=== PATIENT | male | born 1995 ===

== ENCOUNTER 2020-07-30 16:18 | Outpatient (CLI) | payer OTHER ==
--- NOTE | 2020-07-30 17:15 | SLEEP CARE CONSULTATION ---
Information from patient questionnaire entered by David Pérez. I have reviewed and concur with the information entered by David Pérez. This document represents the service I personally performed and the decisions made by me, Patricia Martinez ARNP. History of Present Illness Service Date and Time: 07/30/2020 1618 Reason for Visit: New patient Chief Complaint: reports: Unrefreshed sleep, Snoring, Excessive daytime sleepiness, Observed pauses in breathing, Fatigue, Frequent awakenings at night, Other (Sore throat when I wake up, major headaches) Date of Onset: 3-4 years Usual bedtime: 10 PM Time it takes to fall asleep: 30 min - 1 hr Snores at night: Yes Observed to quit breathing while asleep: Yes Sleeps alone due to snoring: Yes Number of times waking at night: 3-4 Reasons for waking at night: reports: Snoring, Other (Unknown reason). denies: Choking, Gasping for air Toss, Turn, or Twitch while sleeping: Yes Recalls having dreams: No Usually gets out of bed at: 0530 Feels refreshed in the morning: No Morning headache: Yes (Couple of hours after I wake up; pretty much every morning) Sleepy or fatigued during the day: Yes Ever fallen asleep while driving: No Takes day naps: Yes (daily for about 2 hours) Dreams during day naps: Yes Prior sleep studies: No Additional HPI information: I had the pleasure of seeing GAYATRI PARRISH today regarding the possibility of him having a sleep disorder. His current complaints are excessive daytime sleepiness, fatigue, frequent night awakenings, observed pauses in breathing, snoring and unrefreshed sleep. He was talking with friend who has sleep apnea and found out his daily fatigue and other symptoms were similar to the friends symptoms before starting treatment. He decided that he should get checked out and treated if needed. He is always tired/fatigued during the day and he wakes up most days with a dry and sore throat. His has complained of his loud snoring and has slept in a different room. She has also told him he has pauses in breathing when sleeping. There is no family history of sleep disordered breathing. He states when he goes to the doctor he usually has elevated blood pressure but he is not on any medications for hypertension at this time. - Parasomnia Symptoms Ever been unable to move upon waking from sleep: Yes Walks in sleep: No Talks in sleep: Yes Ever acted out dreams in sleep: No Ever felt weak in the knees when startled or emotional: Yes Bothered by creepy, crawly, restless sensations in legs: Yes (mostly at night) Problems with memory or concentration: Yes (mostly concentration, but some memor y issues as well) Subjective Initial [place] Sleepiness Scale score: 21 (in 2020) Past Medical History Past Medical History: reports: Other (He does have high blood pressure readings at doctor's office) Social History The patient's occupation is active duty in the [employer]. Patient is and lives in [place]. Have you smoked in the past 12 months: No Cigarettes per day (20/pack): 1 Years of smokin Quit date: 2018 Smoking Pack Years: 0 Alcohol use: Yes Alcohol amount and frequency: 2 beers on the weekend Caffeine use: Yes Caffeine amount and frequency: 1 cup in the morning Family History Family history of sleep disordered breathing: No Allergies and Home Medications Drug allergies reviewed: Yes (NKDA) Home medication list reviewed: Yes Allergy and home medication list: Ibuprofen, prn Review of Systems Weight gain over past 5 years: 30 Cardiovascular: reports: high blood pressure, leg or foot swelling Gastrointestinal: reports: difficulty swallowing, nausea, diarrhea, abdominal pain Neurological: reports: headaches. denies: head trauma Psychiatric: reports: anxiety, depression Ear/Nose/Throat: reports: nasal congestion, nose bleeds, dry mouth/throat, wisdom teeth removed. denies: tonsillectomy Endocrine: reports: excessive thirst Musculoskeletal: reports: joint pain (stiffness), back pain, joint swelling, muscle pain or cramping Immunologic: reports: sneezing (runny nose), allergies to food or environment (seasonal allergies) Physical Exam Blood Pressure: 131/93 Cuff size: wrist Heart Rate: 85 O2 Saturation: 99 Height: 6 ft 2 in Weight: 220 lb Body Mass Index: 28.2 BMI Classification: Overweight Neck circumference: 17 (inches) Nostrils: patent to airflow Mouth and throat: narrow oropharynx Soft palate: long Hard palate: normal Uvula: long Uvula visualization: 50% Mallampati Class II Tongue: normal in size Tonsils: small Heart: regular rate and rhythm Lungs: clear bilaterally Impression and Plan 1. Suspected Obstructive Sleep Apnea-Hypopnea Syndrome, as suggested by a history of loud and irregular snoring, observed cessation of breath while asleep, morning headache, frequent awakening during the night, unrefreshed sleep, cognitive impairment, and excessive daytime sleepiness. Narrow oropharynx and obesity are common predisposing factors for obstructive sleep apnea-hypopnea syndrome. I recommend proceeding to polysomnography to confirm the diagnosis and to assess severity. If the patient has significant sleep disordered breathing, a manual CPAP titration study will also be performed to find the optimal treatment pressure. I informed the patient of what the sleep studies involve and after some discussion, obtained agreement to proceed. The pathophysiology of obstructive sleep apnea-hypopnea syndrome was discussed with the patient and health risks of cardiovascular and cerebrovascular disease if not treated. Risks of drowsy driving discussed in detail and patient advised to avoid long distance driving and to caul fat puller at the first sign of drowsiness. Patient agreed to plan. * Schedule polysomnography +- manual CPAP titration study and return in 1-2 weeks after the study to discuss result and initiate therapy. * Avoid long distance driving or driving when feeling sleepy. * Avoid alcohol, sedative and muscle relaxant around bedtime. * Attempt to lose weight. * Review instructions provided by trained office staff on how to prepare for the sleep study. * Return for follow-up after sleep study completed. Counseling Topics: Weight loss health impact Visit Type: In Office Time Spent with Patient (minutes): 30 Provider Statement: I spent 100% of the Face to Face Visit with the patient with greater than 50% spent counseling the patient and coordination of care.
[2020-07-30 17:16] VITALS: BP 131/93
== END 2020-07-30 16:19 | disposition home or self-care (01) ==
LOC: SC 16:18
PROVIDERS: ATTEND Nurse Practitioner Family
DX: R06.83 Snoring (principal); R06.81 Apnea, not elsewhere classified; R51.9 Headache, unspecified; G47.8 Other sleep disorders; R41.89 Other symptoms and signs involving cognitive functions and awareness; G47.10 Hypersomnia, unspecified; E66.3 Overweight; Z68.28 Body mass index [BMI] 28.0-28.9, adult; Z87.891 Personal history of nicotine dependence
CPT/HCPCS: 99203; 99212

== ENCOUNTER 2020-08-07 14:59 | Outpatient (CLI) | payer OTHER | END 2020-08-07 15:00 | disposition home or self-care (01) | LOC: SC 14:59 | PROVIDERS: ATTEND Nurse Practitioner Family | DX: R06.83 Snoring (principal); R53.83 Other fatigue; G47.8 Other sleep disorders; R51.9 Headache, unspecified; R06.81 Apnea, not elsewhere classified; G47.10 Hypersomnia, unspecified; E66.3 Overweight; Z68.28 Body mass index [BMI] 28.0-28.9, adult | CPT/HCPCS: 95806 ==

== ENCOUNTER 2020-08-12 16:24 | Outpatient (CLI) | payer OTHER ==
--- NOTE | 2020-08-12 16:38 | SLEEP CARE CONSULTATION ---
Information from patient questionnaire entered by David Pérez. I have reviewed and concur with the information entered by David Pérez. This document represents the service I personally performed and the decisions made by , Patricia Martinez ARNP. History of Present Illness Service Date and Time: 08/12/20201623 Initial [place] Sleepiness Scale score: 21 (in 2020) Current [place] Sleepiness Scale score: 22 Additional HPI information: GAYATRI PARRISH returns for follow up and results of the recently performed home sleep study. The patient was informed of the following findings: no significant sleep disordered breathing with an average AHI of 1.4 and zacarias oxygen saturation of 91%. I explained the pathophysiology behind obstructive sleep apnea. Patient does not have sleep apnea and was advised how weight gain could increase the risk of developing sleep apnea in the future. I strongly encouraged the patient to lose weight. Patient has moderate snoring. Snoring can be reduced by weight loss. Weight loss is best achieved with diet consult. Patient instructed to contact PCP for referral. Snoring can also be treated with an oral appliance from a dentist. Advised to check insurance coverage. In addition, an ENT evaluation can be do to see if other treatment is indicated. Patient does not drink alcohol. Patient was cautioned about risks of drowsy driving until sleepiness symptoms resolve. Sleep Study - Results Type of Sleep Study: Home sleep study Prior sleep studies: No Polysomnography/Home Sleep Study results: Physician Impression: The quality of the study is good. The length of the study is adequate (> 240 minutes). Please also see the tabulated and graphic data. 1. No significant sleep disordered breathing, with an AHI of 1.4/hr and zacarias SaO2 of 91%. During the study, the patient had 6 apneas (6 obstructive, 0 central, 0 mixed) and 5 hypopneas. The longest episode lasted 57.0 seconds. The patient slept adequately in supine position (supine AHI was 1.8 and non-supine, 0.93). Allergies and Home Medications Home medication list reviewed: Yes (no changes) Review of Systems Review of systems same as previous: Yes (no changes) Physical Exam Heart Rate: 101 O2 Saturation: 99 Height: 6 ft 2 in Weight: 228 lb Body Mass Index: 29.2 BMI Classification: Overweight Impression and Plan Snoring but no significant sleep disordered breathing. Patient advised that often weight loss will reduce snoring as well as apnea risk. An oral appliance can also be used for snoring. This would require a dental consultation. Patient cautioned not to use other online appliances as can cause bite issues. A list of accredited dentists in [facility] and one local dentist who makes oral appliances is available in the office. Patient is advised to check if insurance will cover. An ENT consult can also be helpful to determine if any other treatment is an option. I gave patient [facility] pamphlets on Coping with shift work and How to get better sleep for him to review and implement guidance as needed to help reduce his sleepiness. He voiced understanding and agreement with plan of care. * Attempt to lose weight * Avoid alcohol consumption near bedtime * The patient is cautioned about driving until sleepiness is completely resolved. * Return as needed for follow up. I will response compliance at that time. Counseling Topics: Weight loss health impact Visit Type: In Office Time Spent with Patient (minutes): 10 Provider Statement: I spent 100% of the Face to Face Visit with the patient with greater than 50% spent counseling the patient and coordination of care.
== END 2020-08-12 16:25 | disposition home or self-care (01) ==
LOC: SC 16:24
PROVIDERS: ATTEND Nurse Practitioner Family
DX: R06.83 Snoring (principal); E66.3 Overweight; Z68.29 Body mass index [BMI] 29.0-29.9, adult
CPT/HCPCS: 99212